=== PATIENT | male | born 1995 | race African-American/Black ===

== ENCOUNTER 2016-08-25 19:06 | Inpatient (IN) | payer MEDICAID ==
[~2016-08-25] VITALS: Ht 180.3 cm; Wt 74.4 kg
[2016-08-25 20:28] LABS: Basophils # (auto) 0 uL; Basophils % (auto) 0.1 % (0.0-2.0); DEFINITIVE VIEW TRANSMISSION; Eosinophils # (auto) 0 uL; Eosinophils % (auto) 0.5 % (0.0-7.0); Hematocrit 34.5 % (41.0-53.0); Hemoglobin 10.9 g/dL (13.5-17.5); Lymphocytes # (auto) 1.2 uL; Lymphocytes % (auto) 15.4 % (10.0-50.0); Mean Corpuscular Hemoglobin 26.7 pg (28.0-32.0); Mean Corpuscular Hgb Conc. 31.6 g/dL (32.0-36.0); Mean Corpuscular Volume 84.4 fL (80.0-100.0); Mean Platelet Volume 7.9 fL (7.4-10.4); Monocytes # (auto) 0.3 uL; Monocytes % (auto) 3.2 % (0.0-12.0); Neutrophils # (auto) 6.4 uL; Neutrophils % (auto) 80.8 % (37.0-80.0); Platelet Count (auto) 279 10^3/uL (140-450); White Blood Cell 7.9 10^3/uL (4.4-10.8)
[2016-08-25 20:41] LABS: INR 1.03 (0.9-1.15); Partial Thromboplastin Time 25.2 sec (22.64-33.71); Prothrombin Time 10.6 sec (9.37-12.3)
[2016-08-25 20:47] LABS: Albumin 2.6 g/dL (3.4-5.0); BUN/Creatinine Ratio 16.1; Calcium 7.9 mg/dL (8.5-10.1); Magnesium 1.7 mg/dL (1.6-2.6); Potassium 3.5 mmol/L (3.5-5.1)
[2016-08-25 20:50] LABS: Bilirubin, Total 0.7 mg/dL (0.2-1.0); Total Protein 5.9 g/dL (6.4-8.2)
[2016-08-25 22:58] LABS: Red Cell Distribution Width 21.4 % (11.6-16.0)
[2016-08-26 01:45] LABS: Anisocytosis Slight; Platelet Estimate Adequate
[2016-08-26 04:47] LABS: Urine Bilirubin Negative (Negative); Urine Color Yellow (Yellow); Urine Glucose Normal (Normal); Urine Hyaline Cast MOD /lpf (0 - 2); Urine Ketone Negative (Negative); Urine Mucus FEW (None Seen); Urine Nitrite Negative (Negative); Urine RBC 7 /hpf (0 - 3); Urine Urobilinogen Normal (Negative)
[2016-08-26 04:48] LABS: Urine Blood 1+ /uL (Negative)
[2016-08-26] MEDS ORDERED: HYDR200T PO (05:42)
[2016-08-26] MEDS ORDERED: ONDANSETRON HCL 4 MG/2 ML VIAL IV PRN (07:15)
[2016-08-26] MEDS ORDERED: MORPHINE SULF INJ 2 MG/ML SYRINGE 1ML IV PRN (07:15)
[2016-08-26] MEDS ORDERED: diphenhdrAMINE HCL 25 MG CAP PO PRN (07:15)
[2016-08-26] MEDS ORDERED: FAMOTIDINE (10MG/ML) 2ML VL IV SCH (07:15)
[2016-08-26] MEDS: FERROUS SULFATE 325 MG TAB PO SCH ×2 (07:51→09:44)
[2016-08-26] MEDS: predniSONE 20 MG TAB PO SCH ×2 (09:43→21:30)
[2016-08-26] MEDS ORDERED: amLODIPine BESYLATE 5 MG TAB PO SCH (10:00)
[2016-08-26] MEDS ORDERED: PANTOPRAZOLE SODIUM 40 MG/10 ML VIAL IV SCH (10:00)
[2016-08-26] MEDS ORDERED: LISINOPRIL 5 MG TAB PO ONE (14:00)
[2016-08-26] MEDS ORDERED: PANTOPRAZOLE 40 MG TAB PO ONE (14:00)
[2016-08-26] MEDS: ALBUMIN 25% 100 ML IV SCH ×4 (14:00→20:39)
[2016-08-26 14:30] VITALS: BP 137/87
[2016-08-26 17:00] VITALS: BP 138/99
[2016-08-26] MEDS: SPIRONOLACTONE 25 MG TAB PO SCH (17:54)
[2016-08-26 20:00] VITALS: BP 127/89
[2016-08-26] MEDS ORDERED: ALBUMIN 25% 100 ML IV SCH (21:00)
[2016-08-26 21:36] VITALS: BP 124/78
[2016-08-26 23:17] LABS: Body Fluid Polymorphonuclear 24 %
[2016-08-27 05:43] VITALS: BP 134/70
[2016-08-27 05:58] LABS: Basophils # (auto) 0 uL; Basophils % (auto) 0.2 % (0.0-2.0); DEFINITIVE VIEW TRANSMISSION; Eosinophils # (auto) 0 uL; Eosinophils % (auto) 0.1 % (0.0-7.0); Hemoglobin 11.1 g/dL (13.5-17.5); Lymphocytes # (auto) 0.9 uL; Lymphocytes % (auto) 13.2 % (10.0-50.0); Mean Corpuscular Hemoglobin 26.5 pg (28.0-32.0); Mean Corpuscular Hgb Conc. 30.9 g/dL (32.0-36.0); Mean Corpuscular Volume 85.8 fL (80.0-100.0); Mean Platelet Volume 8.3 fL (7.4-10.4); Monocytes # (auto) 0.1 uL; Monocytes % (auto) 1.4 % (0.0-12.0); Neutrophils # (auto) 5.9 uL; Neutrophils % (auto) 85.1 % (37.0-80.0); Platelet Count (auto) 266 10^3/uL (140-450); White Blood Cell 6.9 10^3/uL (4.4-10.8)
[2016-08-27 06:09] LABS: Potassium 4.5 mmol/L (3.5-5.1)
[2016-08-27 06:11] LABS: Red Cell Distribution Width 21.1 % (11.6-16.0)
[2016-08-27 06:14] LABS: Albumin 2.6 g/dL (3.4-5.0); BUN/Creatinine Ratio 17.4; Calcium 8.1 mg/dL (8.5-10.1)
[2016-08-27 06:17] LABS: Bilirubin, Total 1.1 mg/dL (0.2-1.0)
[2016-08-27 06:38] LABS: Platelet Estimate Adequate
[2016-08-27 06:51] LABS: Anisocytosis Slight; Hypochromia Slight
[2016-08-27 06:52] LABS: Ovalocytes FEW
[2016-08-27] MEDS: FERROUS SULFATE 325 MG TAB PO SCH (07:53)
[2016-08-27 08:00] VITALS: BP 141/88
[2016-08-27 08:08] LABS: Thyroid Peroxidase (TPO) Ab 9 IU/mL (0-26)
[2016-08-27] MEDS ORDERED: SPIR25TA88 PO (08:53)
[2016-08-27 09:00] VITALS: BP_SYST 138; BP_SYST 141; BP_DIAS 79; BP_DIAS 88
[2016-08-27] MEDS ORDERED: LISINOPRIL 5 MG TAB PO SCH (10:00)
[2016-08-27] MEDS ORDERED: PANTOPRAZOLE 40 MG TAB PO SCH (10:00)
[2016-08-27] MEDS: predniSONE 20 MG TAB PO SCH (10:04)
[2016-08-27] MEDS: SPIRONOLACTONE 25 MG TAB PO SCH (10:04)
[2016-08-27 12:48] VITALS: BP 133/74
[2016-08-27 13:00] VITALS: BP 133/74
[2016-08-27 13:06] LABS: Sjogren's Anti-SS-A Antibody 1.5 AI (0.0-0.9)
[2016-08-28 16:06] LABS: Albumin, Body Fluid 1.7 g/dL (.)
[2016-08-30 12:06] LABS: Anti-intermyofibrillar Ab Negative (Neg:<1:20); Anti-sarcolemma Antibody Negative (Neg:<1:20)
== END 2016-08-27 13:25 | disposition home or self-care (01) | DRG 280 ==
LOC: ER 19:11 → OVERFLOW 19:12 → EAST 08-26 09:06 → WEST WING 08-26 14:33
PROVIDERS: ADMIT Family Medicine; ATTEND Hospitalist
PROC: 0W9G30Z Drainage of Peritoneal Cavity with Drainage Device, Percutaneous Approach (ICD-10-PCS; principal; 2016-08-26)
DX: K70.31 Alcoholic cirrhosis of liver with ascites (principal); M32.14 Glomerular disease in systemic lupus erythematosus; M32.9 Systemic lupus erythematosus, unspecified; I12.9 Hypertensive chronic kidney disease with stage 1 through stage 4 chronic kidney disease, or unspecified chronic kidney disease; R33.9 Retention of urine, unspecified; F12.90 Cannabis use, unspecified, uncomplicated; F17.210 Nicotine dependence, cigarettes, uncomplicated; N18.2 Chronic kidney disease, stage 2 (mild); Z83.2 Family history of diseases of the blood and blood-forming organs and certain disorders involving the immune mechanism
CPT/HCPCS: 36415; 74176; 76700; 76942; 80053; 81001; 82150; 83690; 83735; 85025; 85610; 85730; 86225; 86235; 87205; 89051; 96374; C9113; G0434; J3490

== ENCOUNTER 2016-11-25 11:08 | Inpatient (IN) | payer MEDICAID ==
[~2016-11-25] VITALS: Ht 180.3 cm; Wt 75.2 kg
[~2016-11-25 11:08] MED LIST: HYDR200T PO; SPIR25TA88 PO
[2016-11-25 12:16] LABS: Basophils # (auto) 0 uL; Basophils % (auto) 0.2 % (0.0-2.0); Eosinophils # (auto) 0.1 uL; Hematocrit 38.7 % (41.0-53.0); Lymphocytes # (auto) 1.2 uL; Lymphocytes % (auto) 41.4 % (10.0-50.0); Mean Corpuscular Hemoglobin 27.3 pg (28.0-32.0); Mean Corpuscular Hgb Conc. 33.6 g/dL (32.0-36.0); Mean Corpuscular Volume 81.4 fL (80.0-100.0); Monocytes # (auto) 0.1 uL; Monocytes % (auto) 4.5 % (0.0-12.0); Neutrophils # (auto) 1.5 uL; Neutrophils % (auto) 51.9 % (37.0-80.0); Platelet Count (auto) 465 10^3/uL (140-450); Red Cell Distribution Width 13.3 % (11.6-16.0); White Blood Cell 2.8 10^3/uL (4.4-10.8)
[2016-11-25 12:34] LABS: Anion Gap 7 (5-15); Aspartate Aminotransferase 15 U/L (15-37); BUN/Creatinine Ratio 13.8; Blood Urea Nitrogen 13 mg/dL (7-18); Calcium 8.7 mg/dL (8.5-10.1); Carbon Dioxide 28 mmol/L (21-32); Chloride 105 mmol/L (98-107); GFR African American 132 mL/min; GFR Non-African American 109 mL/min; Glucose 95 mg/dL (74-106); Potassium 3.8 mmol/L (3.5-5.1); Sodium 140 mmol/L (136-145)
[2016-11-25 12:38] LABS: Alkaline Phosphatase 60 U/L (45-117); Bilirubin, Total 0.6 mg/dL (0.2-1.0); Total Protein 7.3 g/dL (6.4-8.2)
[2016-11-25 14:15] LABS: Urine Bilirubin Negative (Negative); Urine Color Yellow (Yellow); Urine Glucose Normal (Normal); Urine Ketone Negative (Negative); Urine Mucus FEW (None Seen); Urine Nitrite Negative (Negative); Urine RBC 7 /hpf (0 - 3); Urine pH 6.5 (5.0-8.0)
[2016-11-25 14:19] LABS: Urine Blood 1+ /uL (Negative)
[2016-11-25] MEDS ORDERED: KETOROLAC TROMETH 30 MG/ML 1ML VIAL IV ONE (14:30)
[2016-11-25] MEDS ORDERED: ACETAMINOPHEN 500 MG TAB PO PRN (14:45)
[2016-11-25] MEDS ORDERED: TEMAZEPAM 15 MG CAP PO PRN (14:45)
[2016-11-25] MEDS ORDERED: HYDROcodone-ACET 5/325MG TAB PO PRN (14:45)
[2016-11-25] MEDS ORDERED: PROCHLORPERAZINE EDISYLATE 5 MG/ML 2ML VIAL IV PRN (14:45)
[2016-11-25] MEDS ORDERED: LORazepam 0.5 MG TAB PO PRN (14:45)
[2016-11-25] MEDS ORDERED: MORPHINE SULF INJ 2 MG/ML SYRINGE 1ML IV PRN ×2 (14:45)
[2016-11-25] MEDS ORDERED: NITROGLYCERIN 0.4 MG SL TAB SL PRN (14:45)
[2016-11-25] MEDS ORDERED: cefTRIAXone 1GM/50ML D5W 50 ML IV ONE (15:00)
[2016-11-25] MEDS: FUROSEMIDE 40 MG/4 ML VIAL IV SCH (15:20)
[2016-11-25] MEDS: PANTOPRAZOLE 40 MG TAB PO SCH (15:20)
[2016-11-25 15:46] LABS: INR 0.99 (0.9-1.15); Partial Thromboplastin Time 29.9 sec (22.64-33.71); Prothrombin Time 10.7 sec (9.37-12.3)
[2016-11-25] MEDS ORDERED: CYAN1TAB14 PO (15:52)
[2016-11-25] MEDS: SPIRONOLACTONE 25 MG TAB PO SCH (18:34)
[2016-11-25 20:00] VITALS: BP 111/70
[2016-11-25 21:36] VITALS: BP 111/70
[2016-11-25] MEDS ORDERED: CYANOCOBALAMIN 500 MCG TAB PO ONE (22:00)
[2016-11-25] MEDS: MYCOPHENOLATE 250 MG CAP PO SCH (22:17)
[2016-11-25] MEDS: HYDROXYCHLOROQUINE SULFATE 200 MG TAB PO SCH (22:17)
[2016-11-26 04:59] VITALS: BP 118/76
[2016-11-26] MEDS: SPIRONOLACTONE 25 MG TAB PO SCH (06:29)
[2016-11-26 07:04] LABS: Basophils # (auto) 0 uL; Basophils % (auto) 0.5 % (0.0-2.0); DEFINITIVE VIEW TRANSMISSION; Eosinophils # (auto) 0.1 uL; Eosinophils % (auto) 5.1 % (0.0-7.0); Hematocrit 35.4 % (41.0-53.0); Hemoglobin 11.8 g/dL (13.5-17.5); Lymphocytes # (auto) 1.1 uL; Lymphocytes % (auto) 53.9 % (10.0-50.0); Mean Corpuscular Hemoglobin 27.2 pg (28.0-32.0); Mean Corpuscular Hgb Conc. 33.3 g/dL (32.0-36.0); Mean Corpuscular Volume 81.7 fL (80.0-100.0); Mean Platelet Volume 7.5 fL (7.4-10.4); Monocytes # (auto) 0.1 uL; Monocytes % (auto) 3.7 % (0.0-12.0); Neutrophils # (auto) 0.8 uL; Neutrophils % (auto) 36.8 % (37.0-80.0); Platelet Count (auto) 418 10^3/uL (140-450); Red Cell Distribution Width 13.2 % (11.6-16.0); White Blood Cell 2.1 10^3/uL (4.4-10.8)
[2016-11-26 07:21] LABS: Albumin 2.6 g/dL (3.4-5.0); Calcium 8.4 mg/dL (8.5-10.1); Potassium 3.9 mmol/L (3.5-5.1)
[2016-11-26 07:26] LABS: Bilirubin, Total 0.4 mg/dL (0.2-1.0); Total Protein 6.2 g/dL (6.4-8.2)
[2016-11-26 07:35] VITALS: BP 116/79
[2016-11-26 09:00] VITALS: BP 116/79
[2016-11-26] MEDS ORDERED: cefTRIAXone 1GM/50ML D5W 50 ML IV SCH (09:00)
[2016-11-26] MEDS ORDERED: CYANOCOBALAMIN 500 MCG TAB PO SCH (10:00)
[2016-11-26] MEDS: HYDROXYCHLOROQUINE SULFATE 200 MG TAB PO SCH (11:08)
[2016-11-26] MEDS: PANTOPRAZOLE 40 MG TAB PO SCH (11:08)
[2016-11-26] MEDS: FUROSEMIDE 40 MG/4 ML VIAL IV SCH (11:19)
[2016-11-26] MEDS: MYCOPHENOLATE 250 MG CAP PO SCH (11:19)
[2016-11-26 13:30] VITALS: BP 103/63
[2016-11-26 15:15] VITALS: BP 103/63
== END 2016-11-26 15:30 | disposition home or self-care (01) ==
LOC: ER 11:08 → TELE 11:09 → TELE-WESTW 20:03
PROVIDERS: ADMIT Internal Medicine; ATTEND Internal Medicine
PROC: 0W9G30Z Drainage of Peritoneal Cavity with Drainage Device, Percutaneous Approach (ICD-10-PCS; principal; 2016-11-26)
DX: R18.8 Other ascites (principal); M32.14 Glomerular disease in systemic lupus erythematosus; R16.1 Splenomegaly, not elsewhere classified; F17.210 Nicotine dependence, cigarettes, uncomplicated; Z82.49 Family history of ischemic heart disease and other diseases of the circulatory system; Z83.2 Family history of diseases of the blood and blood-forming organs and certain disorders involving the immune mechanism; Z88.6 Allergy status to analgesic agent
CPT/HCPCS: 36415; 71010; 74176; 76700; 76942; 80053; 81001; 82140; 82150; 82270; 82378; 83690; 84443; 84484; 85025; 85610; 85652; 85730; 86141; 87086; 93306; 96374; 96375; 99291; J0696; J1885; J7517

== ENCOUNTER 2017-02-04 06:06 | Emergency (ER) | payer MEDICAID ==
[~2017-02-04] VITALS: Ht 180.3 cm; Wt 70.3 kg
[~2017-02-04 06:06] MED LIST changes: +CYAN1TAB14 PO
[2017-02-04 08:11] LABS: Basophils # (auto) 0.1 uL; Basophils % (auto) 1.1 % (0.0-2.0); CONDITION Y; Eosinophils # (auto) 0 uL; Eosinophils % (auto) 0.8 % (0.0-7.0); Hematocrit 43.2 % (41.0-53.0); Hemoglobin 14.3 g/dL (13.5-17.5); Lymphocytes # (auto) 2.3 uL; Lymphocytes % (auto) 40.4 % (10.0-50.0); Mean Corpuscular Hemoglobin 27.8 pg (28.0-32.0); Mean Platelet Volume 7.1 fL (7.4-10.4); Monocytes # (auto) 0.3 uL; Monocytes % (auto) 5.1 % (0.0-12.0); Neutrophils % (auto) 52.6 % (37.0-80.0); Platelet Count (auto) 405 10^3/uL (140-450); Red Cell Distribution Width 17.2 % (11.6-16.0); White Blood Cell 5.7 10^3/uL (4.4-10.8)
[2017-02-04 08:28] LABS: INR 0.96 (0.9-1.15); Partial Thromboplastin Time 28.2 sec (22.64-33.71); Prothrombin Time 10.5 sec (9.37-12.3)
[2017-02-04 08:40] VITALS: BP 118/73
[2017-02-04 08:45] LABS: Albumin 2.8 g/dL (3.4-5.0); BUN/Creatinine Ratio 16.9; Bilirubin, Total 0.2 mg/dL (0.2-1.0); Calcium 8.8 mg/dL (8.5-10.1); Potassium 4.4 mmol/L (3.5-5.1); Total Protein 6.7 g/dL (6.4-8.2)
== END 2017-02-04 10:53 | disposition home or self-care (01) ==
LOC: ER 06:06
DX: R18.8 Other ascites (principal); R10.84 Generalized abdominal pain; F17.210 Nicotine dependence, cigarettes, uncomplicated; F12.10 Cannabis abuse, uncomplicated; Z88.8 Allergy status to other drugs, medicaments and biological substances; Z79.899 Other long term (current) drug therapy
CPT/HCPCS: 36415; 49083; 76705; 80053; 83735; 85025; 85610; 85730; 99285; C1729; 10022; 76942

== ENCOUNTER 2017-03-23 08:09 | Inpatient (IN) | payer MEDICAID ==
[~2017-03-23] VITALS: Ht 180.3 cm; Wt 65.8 kg
[2017-03-23 09:14] LABS: Basophils # (auto) 0.1 uL; Basophils % (auto) 1.9 % (0.0-2.0); CONDITION Y; Eosinophils # (auto) 0 uL; Eosinophils % (auto) 0.3 % (0.0-7.0); Hematocrit 45.8 % (41.0-53.0); Hemoglobin 15.5 g/dL (13.5-17.5); Lymphocytes % (auto) 40.8 % (10.0-50.0); Mean Corpuscular Hemoglobin 29.1 pg (28.0-32.0); Mean Corpuscular Hgb Conc. 33.8 g/dL (32.0-36.0); Mean Corpuscular Volume 86.1 fL (80.0-100.0); Mean Platelet Volume 8.3 fL (7.4-10.4); Monocytes # (auto) 0.1 uL; Monocytes % (auto) 1.8 % (0.0-12.0); Neutrophils % (auto) 55.2 % (37.0-80.0); Platelet Count (auto) 258 10^3/uL (140-450); White Blood Cell 7.3 10^3/uL (4.4-10.8)
[2017-03-23 09:36] LABS: INR 0.96 (0.9-1.15); Partial Thromboplastin Time 27.3 sec (22.64-33.71); Prothrombin Time 10.5 sec (9.37-12.3)
[2017-03-23 09:39] LABS: Albumin 2.9 g/dL (3.4-5.0); BUN/Creatinine Ratio 14.1; Bilirubin, Total 0.5 mg/dL (0.2-1.0); Calcium 8.5 mg/dL (8.5-10.1); Potassium 3.4 mmol/L (3.5-5.1); Total Protein 6.2 g/dL (6.4-8.2)
[2017-03-23] MEDS ORDERED: SODIUM CHLORIDE 0.9% 1,000 ML IVB ONE (10:23)
[2017-03-23 11:40] LABS: Magnesium 2.2 mg/dL (1.6-2.6)
[2017-03-23 13:25] LABS: Urine Bilirubin Negative (Negative); Urine Blood 1+ /uL (Negative); Urine Color Yellow (Yellow); Urine Glucose Normal (Normal); Urine Ketone Negative (Negative); Urine Mucus FEW (None Seen); Urine Nitrite Negative (Negative); Urine RBC 8 /hpf (0 - 3); Urine Squamous Epithelial Cell FEW /hpf (<5); Urine Urobilinogen Normal (Negative)
[2017-03-23] MEDS ORDERED: cefTRIAXone 1GM/50ML D5W 50 ML IV ONE ×2 (13:45→14:00)
[2017-03-23] MEDS ORDERED: POTASSIUM CHL 10% (20 MEQ/15ML) 15ml ORAL SOLN PO ONE (13:45)
[2017-03-23] MEDS ORDERED: HYDROcodone-ACET 5/325MG TAB PO PRN (14:00)
[2017-03-23] MEDS ORDERED: ACETAMINOPHEN 500 MG TAB PO PRN (14:00)
[2017-03-23] MEDS ORDERED: PROMETHAZINE HCL 25 MG/ML 1ML IV PRN (14:00)
[2017-03-23] MEDS ORDERED: MORPHINE SULF INJ 2 MG/ML SYRINGE 1ML IV PRN (14:00)
[2017-03-23] MEDS ORDERED: LORazepam 0.5 MG TAB PO PRN (14:00)
[2017-03-23] MEDS ORDERED: LORazepam 2MG/ML-1ML VIAL IV PRN (14:00)
[2017-03-23] MEDS ORDERED: MORPHINE SULFATE 4 MG/ML SYRG IV PRN (14:00)
[2017-03-23] MEDS ORDERED: NITROGLYCERIN 0.4 MG SL TAB SL PRN (14:00)
[2017-03-23] MEDS ORDERED: TEMAZEPAM 15 MG CAP PO PRN (14:00)
[2017-03-23] MEDS ORDERED: ENOXAPARIN SOD 40 MG/0.4 ML SYRINGE SC SCH (14:15)
[2017-03-23] MEDS ORDERED: PANTOPRAZOLE 40 MG TAB PO SCH (14:15)
[2017-03-23] MEDS ORDERED: methylPREDNISolone SOD SUCC 40 MG/ML VL IV ONE (14:30)
[2017-03-23 15:48] VITALS: BP 133/72
[2017-03-23] MEDS ORDERED: MYCOPHENOLATE 500 MG TAB PO SCH (22:00)
[2017-03-23] MEDS ORDERED: MYCOPHENOLATE 250 MG CAP PO SCH (22:00)
[2017-03-23] MEDS ORDERED: methylPREDNISolone SOD SUCC 40 MG/ML VL IV SCH (22:00)
[2017-03-24] MEDS ORDERED: cefTRIAXone 1GM/50ML D5W 50 ML IV SCH (09:00)
[2017-03-24] MEDS ORDERED: SPIRONOLACTONE 25 MG TAB PO SCH (10:00)
[2017-03-24] MEDS ORDERED: CYANOCOBALAMIN 500 MCG TAB PO SCH (10:00)
== END 2017-03-23 17:35 | disposition left against medical advice (07) | DRG 346 ==
LOC: ER 08:09 → TELE 08:10
PROVIDERS: ADMIT Internal Medicine; ATTEND Internal Medicine
PROC: 0W9G3ZZ Drainage of Peritoneal Cavity, Percutaneous Approach (ICD-10-PCS; principal; 2017-03-23)
DX: M32.19 Other organ or system involvement in systemic lupus erythematosus (principal); R18.8 Other ascites; I31.3 Pericardial effusion (noninflammatory); E44.0 Moderate protein-calorie malnutrition; R56.9 Unspecified convulsions; M32.14 Glomerular disease in systemic lupus erythematosus; I10 Essential (primary) hypertension; E87.6 Hypokalemia; F41.9 Anxiety disorder, unspecified; G47.00 Insomnia, unspecified; Z53.21 Procedure and treatment not carried out due to patient leaving prior to being seen by health care provider; F17.210 Nicotine dependence, cigarettes, uncomplicated; N39.0 Urinary tract infection, site not specified; Z83.2 Family history of diseases of the blood and blood-forming organs and certain disorders involving the immune mechanism; Z88.6 Allergy status to analgesic agent; Z68.20 Body mass index [BMI] 20.0-20.9, adult; Z79.899 Other long term (current) drug therapy
CPT/HCPCS: 36415; 71020; 74176; 76705; 76942; 80053; 81001; 83690; 83735; 84443; 85025; 85610; 85652; 85730; 86141; 87086; 94761; 96361; 96365; 96366; J0696; J7517

== ENCOUNTER 2019-08-27 12:48 | Emergency (ER) | payer MEDICAID ==
[~2019-08-27] VITALS: Ht 177.8 cm; Wt 68.0 kg
[~2019-08-27 12:48] MED LIST changes: +HYDR-4188 PO; -HYDR200T PO
[2019-08-27 13:44] VITALS: BP 129/83
[2019-08-27] MEDS ORDERED: ACETAMINOPHEN 325 MG TAB PO ONE ×2 (14:00→14:30)
[2019-08-27] MEDS ORDERED: cefTRIAXone SOD 1,000 MG VL IM ONE (19:00)
== END 2019-08-27 20:08 | disposition home or self-care (01) ==
LOC: ER 12:48
DX: K12.0 Recurrent oral aphthae (principal); I10 Essential (primary) hypertension; F17.210 Nicotine dependence, cigarettes, uncomplicated; R22.0 Localized swelling, mass and lump, head; Z88.6 Allergy status to analgesic agent
CPT/HCPCS: 70486; 99284; J0696

== ENCOUNTER 2021-03-04 09:30 | Emergency (ER) | payer MEDICAID ==
[~2021-03-04] VITALS: Ht 177.8 cm; Wt 72.6 kg
[~2021-03-04 09:30] MED LIST changes: +SPIR25TA PO; -SPIR25TA88 PO
[2021-03-04 10:28] VITALS: BP 129/73
[2021-03-04] MEDS ORDERED: KETOROLAC TROMETH 60MG/2ML VIAL IM ONE (11:45)
== END 2021-03-04 12:12 | disposition home or self-care (01) ==
LOC: ER 09:30
DX: L73.9 Follicular disorder, unspecified (principal); L03.811 Cellulitis of head [any part, except face]; G89.4 Chronic pain syndrome; F17.210 Nicotine dependence, cigarettes, uncomplicated; Z79.899 Other long term (current) drug therapy; Z88.6 Allergy status to analgesic agent
CPT/HCPCS: 96372; 99283; J1885

== ENCOUNTER 2021-09-07 08:27 | Emergency (ER) | payer MEDICAID ==
[~2021-09-07] VITALS: Ht 182.9 cm; Wt 79.4 kg
[2021-09-07 09:11] LABS: Basophils # (auto) 0.1 10 ^3/uL (0-0.2); Basophils % (auto) 0.9 % (0.0-2.0); Eosinophils # (auto) 0.6 10 ^3/uL (0-0.8); Eosinophils % (auto) 9.9 % (0.0-7.0); Hematocrit 42.7 % (41.0-53.0); Hemoglobin 14.7 g/dL (13.5-17.5); Lymphocytes # (auto) 1.4 10 ^3/uL (0.4-5.4); Lymphocytes % (auto) 22.3 % (10.0-50.0); Mean Corpuscular Hemoglobin 29.8 pg (28.0-32.0); Mean Corpuscular Hgb Conc. 34.3 g/dL (32.0-36.0); Mean Corpuscular Volume 87.1 fL (80.0-100.0); Monocytes # (auto) 0.5 10 ^3/uL (0-1.3); Neutrophils # (auto) 3.8 10 ^3/uL (1.6-8.6); Neutrophils % (auto) 58.9 % (37.0-80.0); Red Blood Cells 4.91 10^6/uL (4.5-5.90); White Blood Cell 6.5 10^3/uL (4.4-10.8)
[2021-09-07 09:27] LABS: BUN/Creatinine Ratio 11.6; Calcium 8.7 mg/dL (8.5-10.1); Potassium 3.6 mmol/L (3.5-5.1)
[2021-09-07 09:30] LABS: Bilirubin, Total 0.6 mg/dL (0.2-1.0); Total Protein 6.5 g/dL (6.4-8.2)
[2021-09-07] MEDS ORDERED: SODIUM CHLORIDE 0.9% 1,000 ML IV ONE ×2 (09:30)
[2021-09-07] MEDS ORDERED: PANTOPRAZOLE 40 MG/10 ML VIAL INJ IV ONE (09:30)
[2021-09-07 11:18] LABS: Urine Bacteria NONE SEEN /hpf (None Seen); Urine Blood TRACE /uL (Negative); Urine Mucus FEW (None Seen); Urine WBC 2 /hpf (0 - 3)
[2021-09-07 11:26] LABS: Alcohol, Urine < 3.0 mg/dL (0-10); Amphetamine Screen, Urine NEGATIVE (NEGATIVE); Barbiturate Scree,Urine NEGATIVE (NEGATIVE); Benzodiazephine Screen, Urine NEGATIVE (NEGATIVE); Cannabinoid Screen, Urine NEGATIVE (NEGATIVE); Cocaine Screen, Urine NEGATIVE (NEGATIVE); Opiate Scree,Urine NEGATIVE (NEGATIVE); Phencyclidine Screen, Urine NEGATIVE (NEGATIVE)
[2021-09-07] MEDS ORDERED: METR500T PO (11:45)
[2021-09-07] MEDS ORDERED: metroNIDAZOLE 500MG/100ML 100 ML IV ONE (11:45)
[2021-09-07] MEDS ORDERED: cefTRIAXone 1GM/50ML D5W 50 ML IV ONE (11:45)
[2021-09-07] MEDS ORDERED: CEPH-509 PO (11:45)
[2021-09-07 13:35] VITALS: BP 102/52
== END 2021-09-07 17:12 | disposition home or self-care (01) ==
LOC: EDBD 08:27 → ER 08:33
DX: K52.9 Noninfective gastroenteritis and colitis, unspecified (principal); F17.210 Nicotine dependence, cigarettes, uncomplicated; Z79.899 Other long term (current) drug therapy; Z88.6 Allergy status to analgesic agent
CPT/HCPCS: 36415; 74176; 80053; 80307; 81001; 82150; 83690; 85025; 96361; 96365; 96367; 96375; 99284; C9113; J0696; J3490

== ENCOUNTER 2021-10-07 16:07 | Emergency (ER) | payer MEDICAID ==
[~2021-10-07] VITALS: Ht 177.8 cm; Wt 68.0 kg
[~2021-10-07 16:07] MED LIST changes: +CEPH-509 PO; +METR500T PO
[2021-10-07 17:24] VITALS: BP 136/76
== END 2021-10-07 18:28 | disposition left against medical advice (07) ==
LOC: ER 16:07
DX: R10.84 Generalized abdominal pain (principal); Z53.21 Procedure and treatment not carried out due to patient leaving prior to being seen by health care provider

== ENCOUNTER 2021-12-28 10:04 | Emergency (ER) | payer MEDICAID ==
[~2021-12-28] VITALS: Ht 177.8 cm; Wt 72.6 kg
[2021-12-28 10:09] VITALS: BP 108/72
[2021-12-28 11:11] LABS: Basophils # (auto) 0.1 10 ^3/uL (0-0.2); Basophils % (auto) 0.9 % (0.0-2.0); Eosinophils # (auto) 6.2 10 ^3/uL (0-0.8); Hematocrit 43.2 % (41.0-53.0); Hemoglobin 14.8 g/dL (13.5-17.5); Lymphocytes # (auto) 1.7 10 ^3/uL (0.4-5.4); Lymphocytes % (auto) 13.9 % (10.0-50.0); Mean Corpuscular Hemoglobin 30.5 pg (28.0-32.0); Mean Corpuscular Hgb Conc. 34.2 g/dL (32.0-36.0); Mean Corpuscular Volume 89.4 fL (80.0-100.0); Monocytes # (auto) 0.4 10 ^3/uL (0-1.3); Monocytes % (auto) 3.6 % (0.0-12.0); Neutrophils # (auto) 3.6 10 ^3/uL (1.6-8.6); Neutrophils % (auto) 29.8 % (37.0-80.0); Red Blood Cells 4.83 10^6/uL (4.5-5.90); Red Cell Distribution Width 13.8 % (11.8-14.3)
[2021-12-28 11:21] LABS: Potassium 3.1 mmol/L (3.5-5.1)
[2021-12-28 11:22] LABS: Eosinophils % (auto) 51.8 % (0.0-7.0)
[2021-12-28 11:25] LABS: Albumin 2.4 g/dL (3.4-5.0); BUN/Creatinine Ratio 10.1
[2021-12-28 11:28] LABS: Bilirubin, Total 0.7 mg/dL (0.2-1.0); Total Protein 5.1 g/dL (6.4-8.2)
[2021-12-28] MEDS ORDERED: cefTRIAXone 1GM/50ML D5W 50 ML IV ONE (12:45)
[2021-12-28] MEDS ORDERED: ONDANSETRON HCL 4 MG/2 ML VIAL IV ONE (12:45)
[2021-12-28] MEDS ORDERED: MORPHINE SULFATE 4 MG/ML SYR/VIAL IV ONE (12:45)
[2021-12-28] MEDS ORDERED: SODIUM CHLORIDE 0.9% 1,000 ML IV ONE ×3 (12:45→14:00)
[2021-12-28] MEDS ORDERED: metroNIDAZOLE 500MG/100ML 100 ML IV ONE (12:45)
[2021-12-28] MEDS ORDERED: hydrALAZINE HCL 20 MG/ML VL IV PRN (14:00)
[2021-12-28] MEDS ORDERED: metroNIDAZOLE 500MG/100ML 100 ML IV SCH (14:00)
[2021-12-29] MEDS ORDERED: levoFLOXacin 500MG 100 ML IV SCH (10:00)
== END 2021-12-28 14:54 | disposition left against medical advice (07) ==
LOC: ER 10:04
DX: K52.9 Noninfective gastroenteritis and colitis, unspecified (principal); F17.210 Nicotine dependence, cigarettes, uncomplicated; F12.10 Cannabis abuse, uncomplicated; Z88.6 Allergy status to analgesic agent
CPT/HCPCS: 36415; 74176; 80053; 83605; 83690; 85025; 87040; 99284; J7030; J0696; J2405; J3490

== ENCOUNTER 2022-03-05 15:34 | Inpatient (IN) | payer MEDICAID ==
[~2022-03-05] VITALS: Ht 182.9 cm; Wt 151.7 kg
[2022-03-05] MEDS ORDERED: PROCHLORPERAZINE EDISYLATE 5 MG/ML 2ML VIAL IV ONE (15:45)
[2022-03-05] MEDS ORDERED: MORPHINE SULFATE 4 MG/ML SYR/VIAL IV ONE (15:45)
[2022-03-05] MEDS ORDERED: SODIUM CHLORIDE 0.9% 1,000 ML IVB ONE (15:45)
[2022-03-05] MEDS ORDERED: PANTOPRAZOLE 40 MG/10 ML VIAL INJ IV ONE (15:45)
[2022-03-05 16:20] LABS: Mean Corpuscular Hemoglobin 29.3 pg (28.0-32.0); Mean Corpuscular Hgb Conc. 32.6 g/dL (32.0-36.0); Mean Corpuscular Volume 89.8 fL (80.0-100.0); Red Blood Cells 5.46 10^6/uL (4.5-5.90); Red Cell Distribution Width 14.1 % (11.8-14.3); White Blood Cell 16.9 10^3/uL (4.4-10.8)
[2022-03-05 16:24] LABS: Band Neutrophils % (manual) 0; Blast Cells 0; Metamyelocytes % 0; Myelocytes % 0; Promyelocytes % 0
[2022-03-05 16:38] LABS: Albumin 2.4 g/dL (3.4-5.0); Calcium 7.9 mg/dL (8.5-10.1)
[2022-03-05 16:40] LABS: Basophils % (manual) 1 (0.0-2.0); Eosinophils % (manual) 51 (0-7); Lymphocytes % (manual) 14 (10.0-50.0); Monocytes % (manual) 3 (0-12); Reactive Lymphocytes 2
[2022-03-05 16:41] LABS: BUN/Creatinine Ratio 7.5; Bilirubin, Total 1.4 mg/dL (0.2-1.0); Total Protein 5.4 g/dL (6.4-8.2)
[2022-03-05] MEDS ORDERED: POTASSIUM CHL 20 Meq TABLET PO ONE (18:15)
[2022-03-05 18:25] LABS: Urine Bacteria FEW /hpf (None Seen); Urine Blood Negative /uL (Negative); Urine Mucus FEW (None Seen); Urine Specific Gravity 1.034 (1.001-1.035); Urine WBC 11 /hpf (0 - 3)
[2022-03-05 19:10] LABS: Amphetamine Screen, Urine NEGATIVE (NEGATIVE); Barbiturate Scree,Urine NEGATIVE (NEGATIVE); Benzodiazephine Screen, Urine NEGATIVE (NEGATIVE); Cannabinoid Screen, Urine POSITIVE (NEGATIVE); Cocaine Screen, Urine NEGATIVE (NEGATIVE); Opiate Scree,Urine NEGATIVE (NEGATIVE); Phencyclidine Screen, Urine NEGATIVE (NEGATIVE)
[2022-03-05] MEDS ORDERED: PROCHLORPERAZINE EDISYLATE 5 MG/ML 2ML VIAL IV PRN (22:00)
[2022-03-05] MEDS ORDERED: ACETAMINOPHEN 325 MG TAB PO PRN (22:00)
[2022-03-05] MEDS ORDERED: ONDANSETRON HCL 4 MG/2 ML VIAL IV PRN (22:00)
[2022-03-05] MEDS ORDERED: ALBUMIN 25% 100 ML IV ONE (22:00)
[2022-03-05] MEDS ORDERED: MORPHINE SULFATE INJ 2 MG/ml SYRG IV PRN (22:00)
[2022-03-05] MEDS ORDERED: HYDROcodone-ACET 5/325MG TAB PO PRN (22:00)
[2022-03-05] MEDS: FAMOTIDINE (10MG/ML) 2ML VL IV SCH (23:00)
[2022-03-05] MEDS: metroNIDAZOLE 500MG/100ML 100 ML IV SCH (23:40)
[2022-03-06] MEDS ORDERED: NITROGLYCERIN 0.4 MG SL TAB SL PRN
[2022-03-06] MEDS ORDERED: MORPHINE SULFATE INJ 2 MG/ml SYRG IV PRN
[2022-03-06 02:00] VITALS: BP 102/51
[2022-03-06 05:00] VITALS: BP 107/66
[2022-03-06] MEDS: metroNIDAZOLE 500MG/100ML 100 ML IV SCH ×3 (06:32→22:39)
[2022-03-06 07:09] LABS: Hematocrit 36.9 % (41.0-53.0); Hemoglobin 12.9 g/dL (13.5-17.5); Mean Corpuscular Hemoglobin 31.3 pg (28.0-32.0); Mean Corpuscular Volume 89.4 fL (80.0-100.0); Red Blood Cells 4.13 10^6/uL (4.5-5.90); Red Cell Distribution Width 14.1 % (11.8-14.3); White Blood Cell 13.3 10^3/uL (4.4-10.8)
[2022-03-06 07:15] LABS: Band Neutrophils % (manual) 0; Basophils % (manual) 0 (0.0-2.0); Blast Cells 0; Metamyelocytes % 0; Myelocytes % 0; Promyelocytes % 0; Reactive Lymphocytes 0
[2022-03-06 07:17] LABS: Albumin 2.2 g/dL (3.4-5.0); Calcium 7.3 mg/dL (8.5-10.1); Potassium 3.4 mmol/L (3.5-5.1)
[2022-03-06 07:21] LABS: BUN/Creatinine Ratio 8.5; Bilirubin, Total 1.2 mg/dL (0.2-1.0); Total Protein 4.4 g/dL (6.4-8.2)
[2022-03-06 07:50] LABS: Eosinophils % (manual) 64 (0-7); Lymphocytes % (manual) 15 (10.0-50.0); Monocytes % (manual) 4 (0-12)
[2022-03-06 09:09] VITALS: BP 102/54
[2022-03-06] MEDS: cefTRIAXone 1GM/50ML D5W 50 ML IV SCH (09:19)
[2022-03-06] MEDS: FAMOTIDINE (10MG/ML) 2ML VL IV SCH ×2 (09:47→22:40)
[2022-03-06] MEDS: ENOXAPARIN SOD 40 MG/0.4 ML SYRINGE SC SCH (09:47)
[2022-03-06] MEDS: POTASSIUM CHLORIDE 40 MEQ in SOD CHL 0.45% 1,000 ML IV SCH (12:54)
[2022-03-06 13:00] VITALS: BP 99/58
[2022-03-06 17:01] VITALS: BP 122/58
[2022-03-06 22:27] VITALS: BP 96/60
[2022-03-07 05:00] VITALS: BP 102/53
[2022-03-07] MEDS: POTASSIUM CHLORIDE 40 MEQ in SOD CHL 0.45% 1,000 ML IV SCH (06:07)
[2022-03-07] MEDS: metroNIDAZOLE 500MG/100ML 100 ML IV SCH (06:08)
[2022-03-07 06:26] LABS: BUN/Creatinine Ratio 7.4; Magnesium 1.3 mg/dL (1.6-2.6); Potassium 3.6 mmol/L (3.5-5.1)
[2022-03-07 09:00] VITALS: BP 146/56
[2022-03-07] MEDS: cefTRIAXone 1GM/50ML D5W 50 ML IV SCH (09:03)
[2022-03-07] MEDS: FAMOTIDINE (10MG/ML) 2ML VL IV SCH (09:30)
[2022-03-07] MEDS: ENOXAPARIN SOD 40 MG/0.4 ML SYRINGE SC SCH (09:30)
== END 2022-03-07 09:40 | disposition left against medical advice (07) | DRG 249 ==
LOC: ER 15:34 → EDBD 15:34 → TELE 23:52 → TELE-EAST 03-06 00:38
PROVIDERS: ADMIT Nurse Practitioner Family; ATTEND Nurse Practitioner Family
DX: K52.9 Noninfective gastroenteritis and colitis, unspecified (principal); E88.09 Other disorders of plasma-protein metabolism, not elsewhere classified; M32.9 Systemic lupus erythematosus, unspecified; E86.0 Dehydration; E87.6 Hypokalemia; F17.210 Nicotine dependence, cigarettes, uncomplicated; N39.0 Urinary tract infection, site not specified; Z20.822 Contact with and (suspected) exposure to COVID-19; Z53.29 Procedure and treatment not carried out because of patient's decision for other reasons; K56.7 Ileus, unspecified; R55 Syncope and collapse; Z83.2 Family history of diseases of the blood and blood-forming organs and certain disorders involving the immune mechanism; Z88.6 Allergy status to analgesic agent
CPT/HCPCS: 36415; 70450; 72125; 74176; 76705; 80048; 80053; 80307; 81001; 82150; 83690; 83735; 85007; 85027; 87086; 93005; 96361; 96374; C9113; G0378; J0696; J2405; J3490; P9047